=== PATIENT | male | born 1950 | race Caucasian/White ===

== ENCOUNTER 2017-12-15 14:27 | Inpatient (IN) ==
--- NOTE | 2017-12-15 14:55 | Emergency Department Note ---
Disposition Clinical Impression: Acute exacerbation of chronic obstructive airways disease Dyspnea Qualifiers: Dyspnea type: unspecified Qualified Code(s): R06.00 - Dyspnea, unspecified Congestive heart failure Qualifiers: Heart failure type: other Qualified Code(s): I50.9 - Heart failure, unspecified Disposition: Admitted As Inpatient Condition: Good Time of Disposition: 19:40 General Adult HPI - General Chief complaint: ED Shortness of Breath/Dyspnea Stated complaint: URIAH X 3weeks Time Seen by Provider: 12/15/17 14:43 Nursing Notes Reviewed: Yes Vital Signs Reviewed: Yes - History of Present Illness HPI Narrative: One-week history of increasing shortness of breath. Cough. Increased weight gain and swelling to lower extremity. Has increased his Lasix which helped with the swelling however is gotten worse again. Recent antibiotic use with no help of the shortness of breath. Pain Scale: 0 - Related Data Home Medications Medication Instructions Recorded Confirmed Albuterol Sulfate [Ventolin Hfa] 2 puff IH Q6H PRN 08/29/17 08/29/17 Atorvastatin Calcium [Lipitor] 20 mg PO HS 08/29/17 08/29/17 Buspirone HCl [Buspar] 15 mg PO DAILY 08/29/17 08/29/17 Diltiazem HCl [Diltiazem 24Hr Cd] 360 mg PO DAILY 08/29/17 08/29/17 Furosemide [Lasix] 80 mg PO DAILY 08/29/17 08/29/17 Glimepiride [Amaryl] 2 mg PO DAILY 08/29/17 08/29/17 Ipratropium Neb [Atrovent Neb] 0.5 mg IH Q6HR PRN 08/29/17 08/29/17 Levalbuterol HCl [Xopenex Neb] 1.25 mg IH Q8H PRN 08/29/17 08/29/17 Lisinopril [Lisinopril] 2.5 mg PO DAILY 08/29/17 08/29/17 Loperamide [Imodium] 2 mg PO BID PRN 08/29/17 08/29/17 Meloxicam [Meloxicam] 15 mg PO DAILY 08/29/17 08/29/17 Metformin HCl [Glucophage] 1,000 mg PO BID 08/29/17 08/29/17 Metoprolol Succinate 200 mg PO DAILY 08/29/17 08/29/17 Omeprazole [PriLOSEC] 40 mg PO DAILY 08/29/17 08/29/17 Rivaroxaban [Xarelto] 20 mg PO DAILY 08/29/17 08/29/17 Spironolactone [Aldactone] 25 mg PO DAILY 08/29/17 08/29/17 Temazepam [Restoril] 30 mg PO HS 08/29/17 08/29/17 Allergies Allergy/AdvReac Type Severity Reaction Status Date / Time cephalexin [From Keflex] Allergy Swelling Verified 08/29/17 09:59 of Lip/Tongue/Throat All systems ED: reviewed and negative except as stated. Constitutional: Denies: fever, chills ENT ED: Denies: congestion Cardiovascular: Denies: chest pain, palpitations, syncope Respiratory: Reports: cough, dyspnea, wheezes, sputum production. Denies: hemoptysis Gastrointestinal: Denies: abdominal pain, nausea, vomiting, diarrhea Genitourinary: Denies: urgency, dysuria Musculoskeletal: Denies: back pain, neck pain Integumentary: Denies: rash, abrasion Neurological: Denies: headache, weakness Past Medical History - Past Medical History Attestation: Yes The following information was validated with the patient. Source: patient Medical history: Reports: arthritis, atrial fibrillation, cardiomyopathy, COPD, coronary artery disease, CVA, diabetes, GERD, hyperlipidemia, hypertension, myocardial infarction Surgical history: Reports: angioplasty/stent, cancer surgery, cholecystectomy, orthopedic, other, prostatectomy, AICD, pacemaker Psychiatric history: Reports: anxiety, depression - Social History Smoking Status: Unknown if ever smoked Smokeless Tobacco Status: No Alcohol use: Reports: none Drug use: Reports: none Physical Exam - General Limitations: no limitations General appearance: alert, in no apparent distress - Head Head exam: atraumatic, normocephalic, normal inspection - Eye Eye exam: Present: normal appearance, PERRL, EOMI - ENT ENT exam: normal exam, normal oropharynx, mucous membranes moist - Neck Neck exam: Present: normal inspection, full ROM, trachea midline - Chest Chest inspection: Present: normal inspection, symmetric chest wall rise - Respiratory Respiratory exam: Present: wheezes. Absent: respiratory distress - Cardiovascular Cardiovascular exam: Present: regular rate, normal rhythm, normal heart sounds - Abdominal Exam Abdominal exam: Present: soft, Non-Tender. Absent: tenderness, distention, guarding, rebound, rigidity - Extremities Exam Extremities exam: Present: normal inspection, full ROM, pedal edema. Absent: tenderness - Back Exam Back exam: Present: normal inspection, full ROM. Absent: tenderness - Neurological Exam Neurological exam: Present: alert, oriented X3 - Psychiatric Psychiatric exam: Present: normal affect, normal mood - Skin Skin exam: Present: warm, dry, intact, normal color. Absent: rash, cyanosis Course Course Narrative: Male patient presenting to emergency complaining of a one-week history of increased weight gain shortness of breath and wheezing. Patient was being seen today at cardiology. He does have a productive cough with sputum. No fevers or chills. No chest pain. They were concerned due to patient's breathing status of a Kaveh. Patient was initially tachypneic. Lab work is normal. He does have pitting edema to his lower extremities. States that he has tried to increase his "fluid pill" and this did help with relieving some of the fluid however is increase again. Patient does have wheezing throughout. He is on oxygen at this time. He is chronically on oxygen at 2 L. We will provide patient with a DuoNeb. Her chest x-ray basic lab workup. We will provide him with steroids likely admitted to the hospital for COPD exacerbation. - Reevaluation(s) Reevaluation #1: Patient chest x-ray shows no focal consolidation however patient does have a productive sputum with a history of COPD. We will place patient on antibiotics and steroids. Patient's BNP is mildly elevated. We will admit patient to the hospital. - Consultations Consultation #1: Dr Bustos accepted patient stable condition. Vital Signs Temperature 97.9 F 12/15/17 14:30 Pulse Rate 107 12/15/17 14:30 Respiratory Rate 24 12/15/17 14:30 Blood Pressure 121/62 12/15/17 14:30 O2 Sat by Pulse Oximetry 97 12/15/17 14:30 Temperature 97.9 F 12/15/17 14:53 Pulse Rate 108 12/15/17 16:45 Respiratory Rate 16 12/15/17 16:45 Blood Pressure 124/83 12/15/17 16:45 O2 Sat by Pulse Oximetry 94 12/15/17 16:45 Oxygen Delivery Oxygen Delivery Nasal Cannula Medical Decision Making - Medical Records Medical records reviewed: Yes I reviewed the patient's medical records. - Lab Data Lab results reviewed: Yes I reviewed the patient's lab results. Result diagrams: 12/15/17 15:30 12/15/17 15:30 Lab Results 12/15/17 12/15/17 12/15/17 Range/Units 15:30 15:30 15:30 WBC 9.7 (4.3-11.1) K/mcL RBC 4.32 (4.19-5.50) M/mcL Hgb 10.7 L (12.9-16.9) g/dL Hct 35.3 L (37.5-50.1) % MCV 81.7 L (83.0-100.0) fL MCH 24.8 L (28.0-33.3) pg MCHC 30.3 L (31.6-35.5) g/dL RDW 17.2 H (11.5-14.5) % Plt Count 213 (140-400) K/mcL MPV 10.3 (9.4-12.4) fL Immature Gran % 0.4 (0-4) % Seg Neutrophils % 73.9 % Lymphocytes % 13.4 % Monocytes % 8.7 % Eosinophils % 3.2 % Basophils % 0.4 % Neutrophils # 7.2 (1.6-8.9) K/mcL Lymphocytes # 1.3 (0.6-4.6) K/mcL Monocytes # 0.8 (0.0-1.3) K/mcL Eosinophils # 0.3 (0.0-0.6) K/mcL Basophils # 0.0 (0.0-0.2) K/mcL Sodium 133 L (136-145) mEq/L Potassium 3.9 (3.5-5.1) mEq/L Chloride 100 (98-107) mEq/L Carbon Dioxide 25 (23-29) mEq/L BUN 17 (8-23) mg/dL Creatinine 1.32 H (0.70-1.30) mg/dL Est GFR ( Amer) > 60 (> 60) Est GFR (Non-Af Amer) 54 L (> 60) BUN/Creatinine Ratio 13 (6-26) Glucose 186 H (70-105) mg/dL Calculated Osmolality 282 (280-300) Lactic Acid 2.8 H (0.5-2.2) mmol/L Calcium 9.0 (8.6-10.3) mg/dL B-Natriuretic Peptide (Less than 100) pg/mL 12/15/17 12/15/17 Range/Units 15:30 17:35 WBC (4.3-11.1) K/mcL RBC (4.19-5.50) M/mcL Hgb (12.9-16.9) g/dL Hct (37.5-50.1) % MCV (83.0-100.0) fL MCH (28.0-33.3) pg MCHC (31.6-35.5) g/dL RDW (11.5-14.5) % Plt Count (140-400) K/mcL MPV (9.4-12.4) fL Immature Gran % (0-4) % Seg Neutrophils % % Lymphocytes % % Monocytes % % Eosinophils % % Basophils % % Neutrophils # (1.6-8.9) K/mcL Lymphocytes # (0.6-4.6) K/mcL Monocytes # (0.0-1.3) K/mcL Eosinophils # (0.0-0.6) K/mcL Basophils # (0.0-0.2) K/mcL Sodium (136-145) mEq/L Potassium (3.5-5.1) mEq/L Chloride (98-107) mEq/L Carbon Dioxide (23-29) mEq/L BUN (8-23) mg/dL Creatinine (0.70-1.30) mg/dL Est GFR ( Amer) (> 60) Est GFR (Non-Af Amer) (> 60) BUN/Creatinine Ratio (6-26) Glucose (70-105) mg/dL Calculated Osmolality (280-300) Lactic Acid 2.7 H (0.5-2.2) mmol/L Calcium (8.6-10.3) mg/dL B-Natriuretic Peptide 376 H (Less than 100) pg/mL - Radiology Data Radiology results reviewed: Yes I reviewed the patient's radiology results. Chest X-Ray 12/15/17 14:54 IMPRESSION: No evidence for acute cardiopulmonary process. D/ / Dewey Covarrubias MD / Dewey Covarrubias MD Interpreting Provider: Dewey Covarrubias MD - EKG Data EKG #1 EKG attestation: Yes I reviewed and interpreted this EKG. EKG results narrative: A. fib with RVR at 105. QRS duration is 110. QT is 383. QTC is 444. No signs of acute ischemia. No previous EKG to compare to.
[2017-12-15] MEDS ORDERED: Ipratropium/Albuterol Neb 3 ML IH ONE (15:15)
[2017-12-15 15:45] LABS: Basophils % 0.4 %; Eosinophils # 0.3 K/mcL (0.0-0.6); Eosinophils % 3.2 %; Hematocrit 35.3 % (37.5-50.1); Hemoglobin 10.7 g/dL (12.9-16.9); Immature Granulocytes % 0.4 % (0-4); Lymphocytes # 1.3 K/mcL (0.6-4.6); Lymphocytes % 13.4 %; Mean Corpuscular HGB Conc 30.3 g/dL (31.6-35.5); Mean Corpuscular Hemoglobin 24.8 pg (28.0-33.3); Mean Corpuscular Volume 81.7 fL (83.0-100.0); Mean Platelet Volume 10.3 fL (9.4-12.4); Monocytes # 0.8 K/mcL (0.0-1.3); Monocytes % 8.7 %; Neutrophils # 7.2 K/mcL (1.6-8.9); Platelet Count 213 K/mcL (140-400); Red Blood Count 4.32 M/mcL (4.19-5.50); Red Cell Distribution Width 17.2 % (11.5-14.5); Segmented Neutrophils % 73.9 %
[2017-12-15 16:03] LABS: BUN/Creatinine Ratio 13 (6-26); Blood Urea Nitrogen 17 mg/dL (8-23); Carbon Dioxide 25 mEq/L (23-29); Chloride 100 mEq/L (98-107); Glucose 186 mg/dL (70-105); Osmolality,Calculated 282 (280-300); Potassium 3.9 mEq/L (3.5-5.1); Sodium 133 mEq/L (136-145); eGFR For Non-African Americans 54 (> 60)
--- NOTE | 2017-12-15 16:27 | Emergency Department Note ---
Disposition Clinical Impression: Dyspnea Qualifiers: Dyspnea type: unspecified Qualified Code(s): R06.00 - Dyspnea, unspecified Disposition: Still a Patient Referrals: Jessica Rosen MANAGER MANUFACTURING [Primary Care Provider] - Forms: ED Satisfaction Letter General Adult HPI - General Chief complaint: ED Shortness of Breath/Dyspnea Stated complaint: URIAH X 3weeks Time Seen by Provider: 12/15/17 14:43 Source: patient, family Limitations: no limitations - History of Present Illness Pain Scale: 0 - Related Data Home Medications Medication Instructions Recorded Confirmed Acetylcysteine [Nac] 500 mg PO BID 08/29/17 08/29/17 Albuterol Sulfate [Ventolin Hfa] 2 puff IH Q6H PRN 08/29/17 08/29/17 Atorvastatin Calcium [Lipitor] 20 mg PO HS 08/29/17 08/29/17 Buspirone HCl [Buspar] 15 mg PO DAILY 08/29/17 08/29/17 Diltiazem HCl [Diltiazem 24Hr Cd] 360 mg PO DAILY 08/29/17 08/29/17 Furosemide [Lasix] 80 mg PO DAILY 08/29/17 08/29/17 Glimepiride [Amaryl] 2 mg PO DAILY 08/29/17 08/29/17 Ipratropium Neb [Atrovent Neb] 0.5 mg IH Q6HR PRN 08/29/17 08/29/17 Levalbuterol HCl [Xopenex Neb] 1.25 mg IH Q8H PRN 08/29/17 08/29/17 Lisinopril [Lisinopril] 2.5 mg PO DAILY 08/29/17 08/29/17 Loperamide [Imodium] 2 mg PO BID PRN 08/29/17 08/29/17 Meloxicam [Meloxicam] 15 mg PO DAILY 08/29/17 08/29/17 Metformin HCl [Glucophage] 1,000 mg PO BID 08/29/17 08/29/17 Metoprolol Succinate 200 mg PO DAILY 08/29/17 08/29/17 Omeprazole [PriLOSEC] 40 mg PO DAILY 08/29/17 08/29/17 Rivaroxaban [Xarelto] 20 mg PO DAILY 08/29/17 08/29/17 Spironolactone [Aldactone] 25 mg PO DAILY 08/29/17 08/29/17 Temazepam [Restoril] 30 mg PO HS 08/29/17 08/29/17 Allergies Allergy/AdvReac Type Severity Reaction Status Date / Time cephalexin [From Keflex] Allergy Swelling Verified 08/29/17 09:59 of Lip/Tongue/Throat Past Medical History - Past Medical History Medical history: Reports: arthritis, atrial fibrillation, cardiomyopathy, COPD, coronary artery disease, CVA, diabetes, GERD, hyperlipidemia, hypertension, myocardial infarction Surgical history: Reports: angioplasty/stent, cancer surgery, cholecystectomy, orthopedic, other, prostatectomy, AICD, pacemaker Psychiatric history: Reports: anxiety, depression - Social History Smoking Status: Unknown if ever smoked Smokeless Tobacco Status: No Alcohol use: Reports: none Drug use: Reports: none Physical Exam - General Limitations: no limitations General appearance: alert, in no apparent distress Course Vital Signs Temperature 97.9 F 12/15/17 14:30 Pulse Rate 107 12/15/17 14:30 Respiratory Rate 24 12/15/17 14:30 Blood Pressure 121/62 12/15/17 14:30 O2 Sat by Pulse Oximetry 97 12/15/17 14:30 Temperature 97.9 F 12/15/17 14:53 Pulse Rate 110 12/15/17 16:12 Respiratory Rate 14 12/15/17 16:12 Blood Pressure 111/89 12/15/17 16:12 O2 Sat by Pulse Oximetry 97 12/15/17 16:12 Oxygen Delivery Oxygen Delivery Nasal Cannula Medical Decision Making - Lab Data Result diagrams: 12/15/17 15:30 12/15/17 15:30 Lab Results 12/15/17 12/15/17 12/15/17 Range/Units 15:30 15:30 15:30 WBC 9.7 (4.3-11.1) K/mcL RBC 4.32 (4.19-5.50) M/mcL Hgb 10.7 L (12.9-16.9) g/dL Hct 35.3 L (37.5-50.1) % MCV 81.7 L (83.0-100.0) fL MCH 24.8 L (28.0-33.3) pg MCHC 30.3 L (31.6-35.5) g/dL RDW 17.2 H (11.5-14.5) % Plt Count 213 (140-400) K/mcL MPV 10.3 (9.4-12.4) fL Immature Gran % 0.4 (0-4) % Seg Neutrophils % 73.9 % Lymphocytes % 13.4 % Monocytes % 8.7 % Eosinophils % 3.2 % Basophils % 0.4 % Neutrophils # 7.2 (1.6-8.9) K/mcL Lymphocytes # 1.3 (0.6-4.6) K/mcL Monocytes # 0.8 (0.0-1.3) K/mcL Eosinophils # 0.3 (0.0-0.6) K/mcL Basophils # 0.0 (0.0-0.2) K/mcL Sodium 133 L (136-145) mEq/L Potassium 3.9 (3.5-5.1) mEq/L Chloride 100 (98-107) mEq/L Carbon Dioxide 25 (23-29) mEq/L BUN 17 (8-23) mg/dL Creatinine 1.32 H (0.70-1.30) mg/dL Est GFR ( Amer) > 60 (> 60) Est GFR (Non-Af Amer) 54 L (> 60) BUN/Creatinine Ratio 13 (6-26) Glucose 186 H (70-105) mg/dL Calculated Osmolality 282 (280-300) Lactic Acid 2.8 H (0.5-2.2) mmol/L Calcium 9.0 (8.6-10.3) mg/dL B-Natriuretic Peptide (Less than 100) pg/mL 12/15/17 Range/Units 15:30 WBC (4.3-11.1) K/mcL RBC (4.19-5.50) M/mcL Hgb (12.9-16.9) g/dL Hct (37.5-50.1) % MCV (83.0-100.0) fL MCH (28.0-33.3) pg MCHC (31.6-35.5) g/dL RDW (11.5-14.5) % Plt Count (140-400) K/mcL MPV (9.4-12.4) fL Immature Gran % (0-4) % Seg Neutrophils % % Lymphocytes % % Monocytes % % Eosinophils % % Basophils % % Neutrophils # (1.6-8.9) K/mcL Lymphocytes # (0.6-4.6) K/mcL Monocytes # (0.0-1.3) K/mcL Eosinophils # (0.0-0.6) K/mcL Basophils # (0.0-0.2) K/mcL Sodium (136-145) mEq/L Potassium (3.5-5.1) mEq/L Chloride (98-107) mEq/L Carbon Dioxide (23-29) mEq/L BUN (8-23) mg/dL Creatinine (0.70-1.30) mg/dL Est GFR ( Amer) (> 60) Est GFR (Non-Af Amer) (> 60) BUN/Creatinine Ratio (6-26) Glucose (70-105) mg/dL Calculated Osmolality (280-300) Lactic Acid (0.5-2.2) mmol/L Calcium (8.6-10.3) mg/dL B-Natriuretic Peptide 376 H (Less than 100) pg/mL Attestation Statement - Attestation Attestation: I examined this patient and my medical decision-making was reviewed with the Resident Physician. I agree with the documented findings, disposition and treatment plan as described except to the extent set forth below. 67 year old male presents to the ED with complaitns of cough and productive whitish cough but no fevers, green/yellow discharge. He wears 4LNC at home and has not been on anitbitoics recently. PAtinet states that he is becoming more dyspneic. WE will do breathing tratments and re-eval and rule out pneumonia
[2017-12-15] MEDS ORDERED: Levofloxacin 750 MG/150 ML 750 MG/150 ML BAG IVPB ONE (16:49)
[2017-12-15] MEDS ORDERED: methylPREDNISolone 125 MG/2 ML VIAL IVP ONE (16:50)
--- NOTE | 2017-12-15 18:50 | Internal Med History&Physical ---
Date of Encounter: 12/15/17 Time of Encounter: 15:00 Internal Medicine - H&P: HPI Chief complaint: Shortness of breath Admitted From: Home Plans for Post Hospital Care: Home History of present illness: Patient is a 67-year-old male with past medical history significant for cardiomyopathy, atrial fibrillation with AICD/pacemaker, hypertension, hyperlipidemia, diabetes, CVA and COPD who presents to the ER on 12/15/17 after being sent from the cardiologists office due to volume overload. Patient reports a three-week history of increased shortness of breath in addition to lower extremity edema. Patient also reports of decreased urinary output. Patient had apparently scheduled appointment at cardiologists office today who recommended patient come in for further treatment of exacerbation of heart failure. In the ER, patient was found to have an elevated BNP of 376 and elevated creatinine of 1.32. Chest x-ray showed no evidence of acute cardiopulmonary process. Patient will be admitted to medical surgical floor for CHF exacerbation, COPD exacerbation and acute renal failure. Past Med Surg Social Fam HX - Past Medical History Medical history: arthritis, atrial fibrillation, cardiomyopathy, COPD, coronary artery disease, CVA, diabetes, GERD, hyperlipidemia, hypertension, myocardial infarction Additional medical history: "chronic bronchitis" Psychiatric history: anxiety, depression - Past Surgical History Surgical History: angioplasty/stent, cancer surgery, cholecystectomy, orthopedic , other, prostatectomy, AICD, pacemaker Additional surgical history: prostectomy. rt knee. gall bladder. shoulders. medtronic pacemaker - Social History Smoking Status: Unknown if ever smoked Smokeless Tobacco Status: No Alcohol use: none Drug use: none - Family History Sister Hx Family Cardiac Disorders: Yes (Coronary arterial disease) Internal Medicine - H&P: Meds Albuterol Sulfate [Ventolin Hfa] 2 puff IH Q6H PRN 08/29/17 [History] Atorvastatin Calcium [Lipitor] 20 mg PO HS 08/29/17 [History] Buspirone HCl [Buspar] 15 mg PO DAILY 08/29/17 [History] Diltiazem HCl [Diltiazem 24Hr Cd] 360 mg PO DAILY 08/29/17 [History] Furosemide [Lasix] 80 mg PO DAILY 08/29/17 [History] Glimepiride [Amaryl] 2 mg PO DAILY 08/29/17 [History] Ipratropium Neb [Atrovent Neb] 0.5 mg IH Q6HR PRN 08/29/17 [History] Levalbuterol HCl [Xopenex Neb] 1.25 mg IH Q8H PRN 08/29/17 [History] Lisinopril [Lisinopril] 2.5 mg PO DAILY 08/29/17 [History] Loperamide [Imodium] 2 mg PO BID PRN 08/29/17 [History] Meloxicam [Meloxicam] 15 mg PO DAILY 08/29/17 [History] Metformin HCl [Glucophage] 1,000 mg PO BID 08/29/17 [History] Metoprolol Succinate 200 mg PO DAILY 08/29/17 [History] Omeprazole [PriLOSEC] 40 mg PO DAILY 08/29/17 [History] Rivaroxaban [Xarelto] 20 mg PO DAILY 08/29/17 [History] Spironolactone [Aldactone] 25 mg PO DAILY 08/29/17 [History] Temazepam [Restoril] 30 mg PO HS 08/29/17 [History] 3 Allergy/AdvReac Type Severity Reaction Status Date / Time cephalexin [From Keflex] Allergy Swelling Verified 08/29/17 09:59 of Lip/Tongue/Throat All Systems PM: A 10-system review of systems was performed and is negative for pertinent findings except as documented above in the HPI. - Constitutional Vitals: Temp Pulse Resp BP Pulse Ox 97.9 F 108 16 124/83 94 12/15/17 14:53 12/15/17 16:45 12/15/17 16:45 12/15/17 16:45 12/15/17 16:45 General appearance: Present: A&O X 3, no acute distress - Eye Eye exam: Present: normal appearance, PERRL, conjuntiva pink, sclera anicteric Pupils: Present: PERRL - ENT ENT exam: Present: mucous membranes moist - Respiratory Respiratory exam: Present: CTAB. Absent: accessory muscle use, rales, rhonchi, wheezes - Cardiovascular Cardiovascular exam: Present: RRR, +S1, +S2. Absent: diastolic murmur, gallop, rubs, systolic murmur - GI/Abdominal GI/Abdominal exam: Present: normal bowel sounds, soft, no peritoneal signs. Absent: distended, tenderness - Expanded Lower Extremities Exam Lower Leg exam: Present: swelling (Bilateral 1+ pitting lower extremity edema up to mid tibia) - Neurological Exam Neurological exam: Present: oriented X3 - Psychiatric Psychiatric exam: Present: normal mood Internal Med - H&P Results - Labs CBC & Chem 7: 12/15/17 15:30 12/15/17 15:30 - Assessment and plan (1) Dyspnea Current Visit: Yes Status: Acute Assessment and plan: Patient with a three-week history of shortness of breath in addition to increased lower extremity edema with an elevated BNP Continue IV diuresis for heart failure exacerbation; echocardiogram pending We will also treat suspected COPD exacerbation with oral prednisone and DuoNeb's Qualifiers: Dyspnea type: unspecified Qualified Code(s): R06.00 - Dyspnea, unspecified (2) COPD exacerbation Current Visit: Yes Status: Acute Assessment and plan: Management as above (3) Acute renal failure (ARF) Current Visit: Yes Status: Acute Assessment and plan: Patient with a creatinine of 1.3 to a GFR 54 Will continue to monitor; levels might increase due to IV diuresis above Qualifiers: Acute renal failure type: unspecified Qualified Code(s): N17.9 - Acute kidney failure, unspecified (4) DVT prophylaxis Current Visit: Yes Status: Acute Assessment and plan: Patient's home dose of Xarelto - Time Spent With Patient Total time spent is greater than 50% in coordination of care (as documented) at patient's floor/unit and/or counseling patient:
[2017-12-15] MEDS ORDERED: Naloxone 0.4 MG/ML INJ IVP PRN (18:58)
[2017-12-15] MEDS ORDERED: Ipratropium Neb 0.5 MG NEBULIZER IH PRN (19:06)
[2017-12-15] MEDS ORDERED: Albuterol 2.5 MG/3 ML NEBULIZER AER PRN (19:06)
[2017-12-15] MEDS: Ipratropium/Albuterol Neb 3 ML IH SCH ×2 (20:19→22:24)
[2017-12-15] MEDS ORDERED: Furosemide 80 MG in 0.9 % Sodium Chloride 50 ML IVPB SCH (21:00)
[2017-12-15] MEDS: Levalbuterol Neb 1.25 MG/3 ML IH SCH (22:19)
[2017-12-15] MEDS: Temazepam 15 MG CAPSULE PO SCH (22:20)
--- NOTE | 2017-12-15 23:59 | Event Note ---
Date of Encounter: 12/15/17 Time of Encounter: 21:00 Alerted by patient's nurse SUSU Grimm that patient has history of A. fib and is now showing A. fib with RVR with heart rate spiking into the 140s to 150s. Patient had not had home dose of metoprolol yet is ordered for 09:00 tomorrow. Patient also takes 360 mg Cardizem in a.m. which is also ordered for 09:00 tomorrow. Pts. BP 117/71. One-time dose of 10 mg IVP cardizem ordered. D/t pts. Afib, ordered DuoNeb's discontinued and replaced with Xopenex IH. Notified by patient's nurse at 23:47 the patient's heart rate was currently still on 150s with blood pressure 115/79. Nurse reported patient received Cardizem at 22:14. Discussed patient with Dr. Gallardo w/recommendation to begin Cardizem drip beginning at 5 mg. w/o bolus. Notified pts. nurse of order w/communication to monitor pts. BP closely. Nurse to notify Dr. Gallardo of any adverse changes or problems overnight.
[2017-12-16] MEDS: Levalbuterol Neb 1.25 MG/3 ML IH SCH ×4 (04:55→21:03)
[2017-12-16] MEDS ORDERED: Metoprolol 100 MG TABLET PO ONE (05:19)
[2017-12-16] MEDS: Metoprolol XL (24 HR) Succ 50 MG TAB.ER.24H PO SCH (05:20)
[2017-12-16] MEDS ORDERED: D5% in Water 1,000 ML IVC PRN (05:23)
[2017-12-16] MEDS ORDERED: *HR* Dextrose 50 % in Water (Syg) 50 ML SYRINGE IVP PRN (05:24)
[2017-12-16] MEDS ORDERED: Dextrose Gel 15 GM/37.5 ML TUBE PO PRN ×2 (05:25→05:26)
[2017-12-16 06:40] LABS: Hematocrit 34.6 % (37.5-50.1); Hemoglobin 10.5 g/dL (12.9-16.9); Immature Granulocytes % 0.8 % (0-4); Lymphocytes # 0.4 K/mcL (0.6-4.6); Lymphocytes % 5.2 %; Mean Corpuscular HGB Conc 30.3 g/dL (31.6-35.5); Mean Corpuscular Hemoglobin 24.7 pg (28.0-33.3); Mean Corpuscular Volume 81.4 fL (83.0-100.0); Mean Platelet Volume 10.4 fL (9.4-12.4); Monocytes # 0.1 K/mcL (0.0-1.3); Monocytes % 1.6 %; Neutrophils # 7.6 K/mcL (1.6-8.9); Platelet Count 195 K/mcL (140-400); Red Blood Count 4.25 M/mcL (4.19-5.50); Red Cell Distribution Width 17.1 % (11.5-14.5); Segmented Neutrophils % 92.4 %
[2017-12-16 07:05] LABS: BUN/Creatinine Ratio 15 (6-26); Blood Urea Nitrogen 20 mg/dL (8-23); Calcium 9.2 mg/dL (8.6-10.3); Carbon Dioxide 22 mEq/L (23-29); Chloride 97 mEq/L (98-107); Glucose 384 mg/dL (70-105); Osmolality,Calculated 290 (280-300); Potassium 4.2 mEq/L (3.5-5.1); Sodium 131 mEq/L (136-145); eGFR For Non-African Americans 53 (> 60)
[2017-12-16] MEDS ORDERED: Insulin LISPRO 300 UNITS/3 ML VIAL SQ SCH ×3 (07:30→21:00)
[2017-12-16] MEDS: Spironolactone 25 MG TABLET PO SCH (07:41)
[2017-12-16] MEDS: *HR* Rivaroxaban 10 MG TABLET PO SCH (07:41)
[2017-12-16] MEDS: Diltiazem CD (24hr) 180 MG CAPSULE PO SCH (07:41)
[2017-12-16] MEDS ORDERED: predniSONE 20 MG TABLET PO SCH (09:00)
[2017-12-16] MEDS: Insulin LISPRO 300 UNITS/3 ML VIAL SQ SCH ×3 (09:21→16:58)
[2017-12-16] MEDS: Furosemide 40 MG/4 ML VIAL IVP SCH ×2 (09:21→16:57)
[2017-12-16] MEDS: Azithromycin 500 MG in D5% in Water 250 ML IVPB SCH (11:16)
--- NOTE | 2017-12-16 12:08 | Internal Med Progress Note ---
Hospitalist Progress Note - Encounter Date of Encounter: 12/16/17 Time of Encounter: 09:00 - Subjective Interval History: Patient said shortness of breath has improved after treatment. Has mild nonproductive cough. - Exam Vitals: Temp Pulse Resp BP Pulse Ox 97.5 F L 102 20 117/66 97 12/16/17 11:01 12/16/17 11:01 12/16/17 11:01 12/16/17 11:01 12/16/17 11:01 Exam: Patient is awake alert, oriented 3, in no acute distress. HEENT: NC/AT, PERRL Neck: Supple, no LAD Lungs: Diffused wheezing bilaterally Heart: S1S2, irregular Abd: Soft, NT, BS normal. Ext: ROM wnl, mild b/l pedal edema Neuro: AAO x 3, no focal neuro deficit - Assessment and Plan (1) Dyspnea Current Visit: Yes Status: Acute Assessment and Plan: Patient with a three-week history of shortness of breath in addition to increased lower extremity edema with an elevated BNP - Continue IV diuresis for heart failure exacerbation; echocardiogram pending - Patient has bilateral wheezing, treated as COPD exacerbation with oral prednisone and DuoNeb, add azithromycin IV (2) COPD exacerbation Current Visit: Yes Status: Acute Assessment and Plan: Management as above (3) Acute renal failure (ARF) Current Visit: Yes Status: Acute Assessment and Plan: Patient with a creatinine of 1.3 to a GFR 54 Will continue to monitor; continue IV Lasix, strict I and O, and fluid restriction (4) DVT prophylaxis Current Visit: Yes Status: Acute Assessment and Plan: Patient's home dose of Xarelto (5) Atrial fibrillation with RVR Current Visit: Yes Status: Acute Assessment and Plan: Patient has A. fib on xarelto at home. Cardizem drip was started last night, heart rate get down now, Cardizem drip was stopped and patient will continue with his by mouth Cardizem - Time Spent with Patient Total time spent is greater than 50% in coordination of care (as documented) at patient's floor/unit and/or counseling patient: 40 minutes Greater than 35 minutes Plan of Care Discussed with: patient Internal Medicine: Result - Labs CBC & Chem 7: 12/16/17 06:17 12/16/17 06:17 Labs: Short CBC 12/16/17 Range/Units 06:17 WBC 8.2 (4.3-11.1) K/mcL Hgb 10.5 L (12.9-16.9) g/dL Hct 34.6 L (37.5-50.1) % Plt Count 195 (140-400) K/mcL Neutrophils # 7.6 (1.6-8.9) K/mcL BMP 12/16/17 06:17 Sodium 131 L Potassium 4.2 Chloride 97 L Carbon Dioxide 22 L BUN 20 Creatinine 1.34 H Glucose 384 H Calcium 9.2 Consult Discharge Plan - Plan Referrals: Jessica Rosen, DIGITAL [employer] PRESS OPERATOR [Primary Care Provider] - (1) Dyspnea Qualifiers: Dyspnea type: unspecified Qualified Code(s): R06.00 - Dyspnea, unspecified (3) Acute renal failure (ARF) Qualifiers: Acute renal failure type: unspecified Qualified Code(s): N17.9 - Acute kidney failure, unspecified
[2017-12-16] MEDS ORDERED: Acetaminophen 325 MG TABLET PO PRN (13:38)
[2017-12-16] MEDS ORDERED: Albuterol 2.5 MG/3 ML NEBULIZER IH PRN (13:46)
[2017-12-16] MEDS: methylPREDNISolone 125 MG/2 ML VIAL IVP SCH ×2 (18:05→23:38)
[2017-12-16] MEDS: Temazepam 15 MG CAPSULE PO SCH (21:48)
[2017-12-16] MEDS: *HR* Acetylcysteine 20% 600 MG/3 ML ORAL SYRINGE PO SCH (21:49)
[2017-12-17] MEDS: Levalbuterol Neb 1.25 MG/3 ML IH SCH ×4 (04:32→22:10)
[2017-12-17 04:41] LABS: Hematocrit 31.7 % (37.5-50.1); Hemoglobin 9.6 g/dL (12.9-16.9); Immature Granulocytes % 0.8 % (0-4); Lymphocytes # 0.5 K/mcL (0.6-4.6); Lymphocytes % 3.9 %; Mean Corpuscular HGB Conc 30.3 g/dL (31.6-35.5); Mean Corpuscular Hemoglobin 24.7 pg (28.0-33.3); Mean Corpuscular Volume 81.5 fL (83.0-100.0); Monocytes # 0.4 K/mcL (0.0-1.3); Monocytes % 3.2 %; Neutrophils # 11.8 K/mcL (1.6-8.9); Platelet Count 188 K/mcL (140-400); Red Blood Count 3.89 M/mcL (4.19-5.50); Red Cell Distribution Width 17.2 % (11.5-14.5); Segmented Neutrophils % 92.1 %
[2017-12-17 05:00] LABS: Calcium 9.1 mg/dL (8.6-10.3); Potassium 4.4 mEq/L (3.5-5.1)
[2017-12-17] MEDS: methylPREDNISolone 125 MG/2 ML VIAL IVP SCH ×3 (05:42→16:32)
[2017-12-17] MEDS ORDERED: Perflutren Lipid Microsphere 1.3 ML in 0.9 % Sodium Chloride 8.7 ML IVP ONE (06:56)
[2017-12-17] MEDS: Insulin LISPRO 300 UNITS/3 ML VIAL SQ SCH ×5 (07:50→22:38)
[2017-12-17] MEDS: Furosemide 40 MG/4 ML VIAL IVP SCH (07:51)
[2017-12-17] MEDS: *HR* Acetylcysteine 20% 600 MG/3 ML ORAL SYRINGE PO SCH ×2 (07:52→22:38)
[2017-12-17] MEDS: Diltiazem CD (24hr) 180 MG CAPSULE PO SCH (07:52)
[2017-12-17] MEDS: *HR* Rivaroxaban 10 MG TABLET PO SCH (07:52)
[2017-12-17] MEDS: Metoprolol XL (24 HR) Succ 50 MG TAB.ER.24H PO SCH (07:52)
[2017-12-17] MEDS: Spironolactone 25 MG TABLET PO SCH (07:52)
[2017-12-17] MEDS: Budesonide/Formoterol 160/4.5 MDI IH SCH ×2 (09:25→22:10)
[2017-12-17] MEDS: Levalbuterol Neb 1.25 MG/3 ML IH PRN ×2 (11:18→18:27)
--- NOTE | 2017-12-17 11:36 | Internal Med Progress Note ---
Hospitalist Progress Note - Encounter Date of Encounter: 12/17/17 Time of Encounter: 09:00 - Subjective Interval History: Patient said shortness of breath has improved after treatment. Has mild nonproductive cough. Still in mild respiratory distress. Pt said he urinate a lot with current diuretics treatment. - Exam Vitals: Temp Pulse Resp BP Pulse Ox 97.6 F 110 22 111/79 98 12/17/17 07:34 12/17/17 07:34 12/17/17 11:20 12/17/17 07:34 12/17/17 11:20 Exam: Pt is AAO x 3, in NAD HEENT: AC/NT, PERRL Neck: Supple, no LAD Lungs: Expiratory wheezing b/l Heart: S1S2, RRR Abd: Soft, NT, normal BS Ext: ROM wnl, mild b/l pedal edema improved Neuro: AAO x 3, no focal deficit. - Assessment and Plan (1) Dyspnea Current Visit: Yes Status: Acute Assessment and Plan: Patient with a three-week history of shortness of breath in addition to increased lower extremity edema with an elevated BNP - Continue IV diuresis for heart failure exacerbation; echocardiogram pending - Patient has bilateral wheezing, treated as COPD exacerbation with iv solumendral and DuoNeb, plus azithromycin IV. Add symbicort. (2) COPD exacerbation Current Visit: Yes Status: Acute Assessment and Plan: Management as above (3) Acute renal failure (ARF) Current Visit: Yes Status: Acute Assessment and Plan: Patient with a creatinine of 1.3 to a GFR 54 Will continue to monitor; continue IV Lasix, strict I and O, and fluid restriction Consider decrease dose of lasix as Cr is slightly increased and pt has good urine output and decreased leg swelling. (4) DVT prophylaxis Current Visit: Yes Status: Acute Assessment and Plan: Patient's home dose of Xarelto (5) Atrial fibrillation with RVR Current Visit: Yes Status: Acute Assessment and Plan: Patient has A. fib on xarelto at home. Cont home dose of metoprolol and cardizem for HR controll. Cont tele monitoring. (6) Diabetes mellitus Current Visit: Yes Status: Acute Assessment and Plan: Patient takes metformin and glimipiride at home. High Glu level probably due to steroid use. Place him on high dose SSI plus basal insulin. - Summary of Assessment and Plan Summary of Assessment and Plan: Generally improving clinically. Still wheezing on exam. Cont current management. - Time Spent with Patient Total time spent is greater than 50% in coordination of care (as documented) at patient's floor/unit and/or counseling patient: 40 min Greater than 35 minutes Plan of Care Discussed with: patient Internal Medicine: Result - Labs CBC & Chem 7: 12/17/17 04:18 12/17/17 04:18 Labs: Short CBC 12/17/17 Range/Units 04:18 WBC 12.8 H D (4.3-11.1) K/mcL Hgb 9.6 L (12.9-16.9) g/dL Hct 31.7 L (37.5-50.1) % Plt Count 188 (140-400) K/mcL Neutrophils # 11.8 H (1.6-8.9) K/mcL BMP 12/17/17 04:18 Sodium 129 L Potassium 4.4 Chloride 96 L Carbon Dioxide 25 BUN 30 H Creatinine 1.50 H Glucose 374 H Calcium 9.1 Consult Discharge Plan - Plan Referrals: Jessica Rosen, RENTAL AGENT [Primary Care Provider] - (1) Dyspnea Qualifiers: Dyspnea type: unspecified Qualified Code(s): R06.00 - Dyspnea, unspecified (3) Acute renal failure (ARF) Qualifiers: Acute renal failure type: unspecified Qualified Code(s): N17.9 - Acute kidney failure, unspecified (6) Diabetes mellitus Qualifiers: Diabetes mellitus type: type 2 Diabetes mellitus shelter insulin use: without termite control service representative use Diabetes mellitus complication status: with kidney complications Diabetes mellitus complication detail: with chronic kidney disease Chronic kidney disease stage: stage 3 (moderate) Qualified Code(s): E11.22 - Type 2 diabetes mellitus with diabetic chronic kidney disease; N18.3 - Chronic kidney disease, stage 3 (moderate)
[2017-12-17] MEDS: Azithromycin 500 MG in D5% in Water 250 ML IVPB SCH (12:08)
[2017-12-17] MEDS ORDERED: Insulin LISPRO 300 UNITS/3 ML VIAL SQ ONE (15:26)
[2017-12-17] MEDS ORDERED: Insulin DETEMIR 100 UNIT/ML X5UNITS SQ SCH ×2 (21:00)
[2017-12-17] MEDS: Temazepam 15 MG CAPSULE PO SCH (22:37)
[2017-12-18] MEDS: MethylPREDNISolone 40 MG/ML VIAL IVP SCH ×3 (00:13→16:53)
[2017-12-18] MEDS: Levalbuterol Neb 1.25 MG/3 ML IH SCH ×4 (04:05→22:11)
[2017-12-18 05:24] LABS: Basophils % 0.1 %; Hematocrit 32.5 % (37.5-50.1); Immature Granulocytes % 1.1 % (0-4); Lymphocytes # 0.5 K/mcL (0.6-4.6); Lymphocytes % 4.4 %; Mean Corpuscular HGB Conc 30.8 g/dL (31.6-35.5); Mean Corpuscular Hemoglobin 25.1 pg (28.0-33.3); Mean Corpuscular Volume 81.5 fL (83.0-100.0); Mean Platelet Volume 10.6 fL (9.4-12.4); Monocytes # 0.4 K/mcL (0.0-1.3); Monocytes % 3.6 %; Neutrophils # 10.4 K/mcL (1.6-8.9); Platelet Count 190 K/mcL (140-400); Red Blood Count 3.99 M/mcL (4.19-5.50); Red Cell Distribution Width 17.2 % (11.5-14.5); Segmented Neutrophils % 90.8 %
[2017-12-18 05:54] LABS: BUN/Creatinine Ratio 26 (6-26); Blood Urea Nitrogen 37 mg/dL (8-23); Calcium 9.1 mg/dL (8.6-10.3); Carbon Dioxide 23 mEq/L (23-29); Chloride 94 mEq/L (98-107); Glucose 421 mg/dL (70-105); Magnesium 2.6 mg/dL (1.6-2.6); Osmolality,Calculated 293 (280-300); Potassium 4.7 mEq/L (3.5-5.1); Sodium 128 mEq/L (136-145); eGFR For Non-African Americans 50 (> 60)
[2017-12-18 05:59] LABS: Thyroid Stimulating Hormone 0.328 mcIU/mL (0.340-5.600)
[2017-12-18] MEDS: Spironolactone 25 MG TABLET PO SCH (08:02)
[2017-12-18] MEDS: Metoprolol XL (24 HR) Succ 50 MG TAB.ER.24H PO SCH (08:02)
[2017-12-18] MEDS: Diltiazem CD (24hr) 180 MG CAPSULE PO SCH (08:03)
[2017-12-18] MEDS: *HR* Acetylcysteine 20% 600 MG/3 ML ORAL SYRINGE PO SCH ×2 (08:03→21:24)
[2017-12-18] MEDS: Furosemide 40 MG/4 ML VIAL IVP SCH (08:03)
[2017-12-18] MEDS: Insulin LISPRO 300 UNITS/3 ML VIAL SQ SCH ×7 (08:05→21:34)
[2017-12-18] MEDS: Levalbuterol Neb 1.25 MG/3 ML IH PRN (08:16)
--- NOTE | 2017-12-18 08:52 | Electrocardiograph Report ---
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
[2017-12-18] MEDS: Budesonide/Formoterol 160/4.5 MDI IH SCH ×2 (10:27→22:11)
--- NOTE | 2017-12-18 10:40 | Internal Med Progress Note ---
Hospitalist Progress Note - Encounter Date of Encounter: 12/18/17 Time of Encounter: 10:38 - Exam Vitals: Temp Pulse Resp BP Pulse Ox 97.7 F 111 18 140/88 99 12/18/17 07:10 12/18/17 07:10 12/18/17 07:10 12/18/17 07:10 12/18/17 07:10 - Assessment and Plan (1) Dyspnea Current Visit: Yes Status: Acute (2) COPD exacerbation Current Visit: Yes Status: Acute (3) Acute renal failure (ARF) Current Visit: Yes Status: Acute (4) DVT prophylaxis Current Visit: Yes Status: Acute (5) Congestive heart failure Current Visit: Yes Status: Acute (6) Atrial fibrillation with RVR Current Visit: Yes Status: Acute (7) Diabetes mellitus Current Visit: Yes Status: Acute - Time Spent with Patient Total time spent is greater than 50% in coordination of care (as documented) at patient's floor/unit and/or counseling patient: Internal Medicine: Result - Labs CBC & Chem 7: 12/18/17 05:09 12/18/17 05:09 Labs: Short CBC 12/18/17 Range/Units 05:09 WBC 11.4 H (4.3-11.1) K/mcL Hgb 10.0 L (12.9-16.9) g/dL Hct 32.5 L (37.5-50.1) % Plt Count 190 (140-400) K/mcL Neutrophils # 10.4 H (1.6-8.9) K/mcL BMP 12/18/17 05:09 Sodium 128 L Potassium 4.7 Chloride 94 L Carbon Dioxide 23 BUN 37 H Creatinine 1.42 H Glucose 421 H Calcium 9.1 - Impressions Impressions Echocardiogram 12/17/17 09:00 Impressions: Technically limited study due to poor sound wave transmission. Limited suboptimal views. No subcostal views adequate for interpretation able to be obtained. Pt in atrial fibrillation with RVR throughout study with HR 110-120s. Overall LV function appears grossly normal. Cannot exclude wall motion abnormalities due to technical limitations of study. Valves not well visualized. No significant valvular heart disease by Doppler criteria. Findings: Study Quality * Technically sub-optimal due to poor echocardiographic windows. ECG Findings * Atrial fibrillation. Left Ventricle * Overall LV function appears grossly normal. Cannot exclude wall motion abnormalities due to technical limitiations of study. * Unable to evaluate segmental wall motion due to technical quality. * Definity echo contrast was used. * Indeterminate diastolic function. Right Ventricle * Not well visualized Left Atrium * Left atrium is not well visualized. Right Atrium * Right atrium is not well visualized. Interatrial Septum * Interatrial septum not well evaluated. Aortic Valve * Aortic valve not well visualized. * No aortic regurgitation. * No aortic stenosis. Mitral Valve * Mitral valve not well visualized. * Trace mitral regurgitation. Tricuspid Valve * Tricuspid valve not well visualized. * Mild tricuspid regurgitation. * No pulmonary hypertension. Pulmonic Valve * Pulmonic valve not well visualized. Aorta * Not well visualized Pericardium * There is no pericardial effusion present. IVC * The IVC is not well evaluated. Consult Discharge Plan - Plan Referrals: Jessica Rosen, IVON [Primary Care Provider] - (1) Dyspnea Qualifiers: Dyspnea type: unspecified Qualified Code(s): R06.00 - Dyspnea, unspecified (3) Acute renal failure (ARF) Qualifiers: Acute renal failure type: unspecified Qualified Code(s): N17.9 - Acute kidney failure, unspecified (5) Congestive heart failure Qualifiers: Heart failure type: other Qualified Code(s): I50.9 - Heart failure, unspecified (7) Diabetes mellitus Qualifiers: Diabetes mellitus type: type 2 Diabetes mellitus siding mechanic insulin use: without residential use Diabetes mellitus complication status: with kidney complications Diabetes mellitus complication detail: with chronic kidney disease Chronic kidney disease stage: stage 3 (moderate) Qualified Code(s): E11.22 - Type 2 diabetes mellitus with diabetic chronic kidney disease; N18.3 - Chronic kidney disease, stage 3 (moderate)
--- NOTE | 2017-12-18 10:56 | Internal Med Progress Note ---
<Natalie Lane - Last Filed: 12/18/17 15:17> Hospitalist Progress Note - Encounter Date of Encounter: 12/18/17 Time of Encounter: 10:56 - Subjective Interval History: Patient is a 67 yo M with history of COPD, Atrial Fribrillation with AICD, HLD, DM, and CVA who presented to the ED on 12/15/17 after referral from the cardiologists office due to fluid overload and SOB. Today the patient states he is much improved in terms of his breathing. He feels his fluid levels have returned to his baseline and he states if he is not discharged tomorrow he will leave. - Exam Vitals: Temp Pulse Resp BP Pulse Ox 97.7 F 111 18 140/88 99 12/18/17 07:10 12/18/17 07:10 12/18/17 07:10 12/18/17 07:10 12/18/17 07:10 Exam: General: white male sitting upright in bed. Conversant, No Apparent Distress, able to speak in full sentences and follow commands Neck: No JVD, trachea midline HEENT: PERRL, normocephalic, atraumatic Cardiac: Reg Rate and Rhythm, Normal S1 and S2, No murmurs appreciated Pulmonary: Inspiratory and expiratory wheezing throughout, worse on right, No Rales or Rhonchi, Not in respiratory distress on 4L nasal cannula Abdomen: soft, tontender, no bruits, no guarding Neuro: Alert and responsive, No focal deficits noted Vascular: Normal capillary refill Skin: No rashes noted on visualized skin. Musculoskeletal: No Chest Wall Tenderness Extremities: No Clubbing, No Cyanosis, Trace peripheral edema, Normal Pulses Psych: Normal mood, pleasant, conversant - Assessment and Plan (1) COPD exacerbation Current Visit: Yes Status: Acute Assessment and Plan: - Patient continues on duonebs, zithromax 500mg IV, symbicort 2 puffs BID, buspar 15mg, levalbuterol 1.25 q 6, and solumedrol 40mg q 8 hours, changed today to BID - Notes significant improvement since admission and requesting to be discharged home - Patient continues to wheeze which he states is his baseline - Will decrease solumedrol from 40mg q 8 to 40mg q 12 hours - Recheck tomorrow and he can likely be discharged home (2) Lactic acidosis Current Visit: Yes Status: Acute Assessment and Plan: - On admission patient had elevated lactate to 2.8, down to 1.9 yesterday - Today this is elevated to 5.1, unsure as to cause - Patient is on metformin at home but this was discontinued on admission. Patient does not appear toxic, has no evidence of fever, systemic illness. He denies any abdominal pain or chest pain. He is tachycardic but this is a result of his AFib. At this point, unsure as to significance of this elevation but will redraw 6 hours after initial (3) Dyspnea Current Visit: Yes Status: Acute Assessment and Plan: - Patient notes significant improvement since admission - Now back to 4L which is his home oxygen requirement (4) Acute renal failure (ARF) Current Visit: Yes Status: Acute Assessment and Plan: - creatinine elevated to 1.42, improved from 1.50 yesterday - Continue with oral rehydration and possibly decrease lasix dosage to avoid further renal injury (5) Atrial fibrillation with RVR Current Visit: Yes Status: Acute Assessment and Plan: - Patient with AFib on Xarelto 15mg (6) Congestive heart failure Current Visit: Yes Status: Acute Assessment and Plan: - Patient has clinical symptoms consistent with CHF including peripheral edema and orthopnea - Echo from 2017 was inconclusive and repeat yesterday was also unable to be read - Patient continues on lasix 40mg IV, he takes 80mg at home - Continues on cardizem 360mg and spironolactone 25mg (7) Diabetes mellitus Current Visit: Yes Status: Acute Assessment and Plan: - Continues on inslulin sliding scale, blood sugars have been notably elevated due to steroid use, today solumedrol decreased from 40 q 8 to q 12 (8) Hyperlipidemia Current Visit: Yes Status: Acute Assessment and Plan: - Continues on lipitor 20mg (9) Hypertension Current Visit: Yes Status: Acute Assessment and Plan: - Continues on lisinopril 2.5 mg and metoprolol succinate 200mg daily - Will continue to monitor vitals (10) DVT prophylaxis Current Visit: Yes Status: Acute Assessment and Plan: - Patient continues on home dose of xarelto 15mg - Time Spent with Patient Total time spent is greater than 50% in coordination of care (as documented) at patient's floor/unit and/or counseling patient: 25 - 35 minutes Plan of Care Discussed with: patient Internal Medicine: Result - Labs CBC & Chem 7: 12/18/17 05:09 12/18/17 05:09 Labs: Short CBC 12/18/17 Range/Units 05:09 WBC 11.4 H (4.3-11.1) K/mcL Hgb 10.0 L (12.9-16.9) g/dL Hct 32.5 L (37.5-50.1) % Plt Count 190 (140-400) K/mcL Neutrophils # 10.4 H (1.6-8.9) K/mcL BMP 12/18/17 05:09 Sodium 128 L Potassium 4.7 Chloride 94 L Carbon Dioxide 23 BUN 37 H Creatinine 1.42 H Glucose 421 H Calcium 9.1 - Impressions Impressions Echocardiogram 12/17/17 09:00 Impressions: Technically limited study due to poor sound wave transmission. Limited suboptimal views. No subcostal views adequate for interpretation able to be obtained. Pt in atrial fibrillation with RVR throughout study with HR 110-120s. Overall LV function appears grossly normal. Cannot exclude wall motion abnormalities due to technical limitations of study. Valves not well visualized. No significant valvular heart disease by Doppler criteria. Findings: Study Quality * Technically sub-optimal due to poor echocardiographic windows. ECG Findings * Atrial fibrillation. Left Ventricle * Overall LV function appears grossly normal. Cannot exclude wall motion abnormalities due to technical limitiations of study. * Unable to evaluate segmental wall motion due to technical quality. * Definity echo contrast was used. * Indeterminate diastolic function. Right Ventricle * Not well visualized Left Atrium * Left atrium is not well visualized. Right Atrium * Right atrium is not well visualized. Interatrial Septum * Interatrial septum not well evaluated. Aortic Valve * Aortic valve not well visualized. * No aortic regurgitation. * No aortic stenosis. Mitral Valve * Mitral valve not well visualized. * Trace mitral regurgitation. Tricuspid Valve * Tricuspid valve not well visualized. * Mild tricuspid regurgitation. * No pulmonary hypertension. Pulmonic Valve * Pulmonic valve not well visualized. Aorta * Not well visualized Pericardium * There is no pericardial effusion present. IVC * The IVC is not well evaluated. Consult Discharge Plan - Plan Referrals: Jessica Rosen SHOT HOLE SHOOTER [Primary Care Provider] - <Ernie Melendez - Last Filed: 12/18/17 16:57> Hospitalist Progress Note - Encounter Date of Encounter: 12/18/17 - Exam Vitals: Temp Pulse Resp BP Pulse Ox 97.7 F 111 24 140/88 97 12/18/17 07:10 12/18/17 07:10 12/18/17 10:27 12/18/17 07:10 12/18/17 10:27 - Assessment and Plan (1) Dyspnea Current Visit: Yes Status: Acute (2) COPD exacerbation Current Visit: Yes Status: Acute (3) Acute renal failure (ARF) Current Visit: Yes Status: Acute (4) DVT prophylaxis Current Visit: Yes Status: Acute (5) Atrial fibrillation with RVR Current Visit: Yes Status: Acute (6) Diabetes mellitus Current Visit: Yes Status: Acute - Time Spent with Patient Total time spent is greater than 50% in coordination of care (as documented) at patient's floor/unit and/or counseling patient: Internal Medicine: Result - Labs CBC & Chem 7: 12/18/17 05:09 12/18/17 05:09 Labs: Short CBC 12/18/17 Range/Units 05:09 WBC 11.4 H (4.3-11.1) K/mcL Hgb 10.0 L (12.9-16.9) g/dL Hct 32.5 L (37.5-50.1) % Plt Count 190 (140-400) K/mcL Neutrophils # 10.4 H (1.6-8.9) K/mcL BMP 12/18/17 05:09 Sodium 128 L Potassium 4.7 Chloride 94 L Carbon Dioxide 23 BUN 37 H Creatinine 1.42 H Glucose 421 H Calcium 9.1 - Impressions Impressions Echocardiogram 12/17/17 09:00 Impressions: Technically limited study due to poor sound wave transmission. Limited suboptimal views. No subcostal views adequate for interpretation able to be obtained. Pt in atrial fibrillation with RVR throughout study with HR 110-120s. Overall LV function appears grossly normal. Cannot exclude wall motion abnormalities due to technical limitations of study. Valves not well visualized. No significant valvular heart disease by Doppler criteria. Findings: Study Quality * Technically sub-optimal due to poor echocardiographic windows. ECG Findings * Atrial fibrillation. Left Ventricle * Overall LV function appears grossly normal. Cannot exclude wall motion abnormalities due to technical limitiations of study. * Unable to evaluate segmental wall motion due to technical quality. * Definity echo contrast was used. * Indeterminate diastolic function. Right Ventricle * Not well visualized Left Atrium * Left atrium is not well visualized. Right Atrium * Right atrium is not well visualized. Interatrial Septum * Interatrial septum not well evaluated. Aortic Valve * Aortic valve not well visualized. * No aortic regurgitation. * No aortic stenosis. Mitral Valve * Mitral valve not well visualized. * Trace mitral regurgitation. Tricuspid Valve * Tricuspid valve not well visualized. * Mild tricuspid regurgitation. * No pulmonary hypertension. Pulmonic Valve * Pulmonic valve not well visualized. Aorta * Not well visualized Pericardium * There is no pericardial effusion present. IVC * The IVC is not well evaluated. - Attending Attestation I have seen and examined this patient independently. I have discussed with the resident physician Dr. Diaz regarding the management plan. Agree with the documentation. <Natalie Lane M - Last Filed: 12/18/17 15:17> (3) Dyspnea Qualifiers: Dyspnea type: unspecified Qualified Code(s): R06.00 - Dyspnea, unspecified (4) Acute renal failure (ARF) Qualifiers: Acute renal failure type: unspecified Qualified Code(s): N17.9 - Acute kidney failure, unspecified (6) Congestive heart failure Qualifiers: Heart failure type: other Qualified Code(s): I50.9 - Heart failure, unspecified (7) Diabetes mellitus Qualifiers: Diabetes mellitus type: type 2 Diabetes mellitus supervisor unloading insulin use: without supervisor unloading use Diabetes mellitus complication status: with kidney complications Diabetes mellitus complication detail: with chronic kidney disease Chronic kidney disease stage: stage 3 (moderate) Qualified Code(s): E11.22 - Type 2 diabetes mellitus with diabetic chronic kidney disease; N18.3 - Chronic kidney disease, stage 3 (moderate) <Ernie Melendez - Last Filed: 12/18/17 16:57> (1) Dyspnea Qualifiers: Dyspnea type: unspecified Qualified Code(s): R06.00 - Dyspnea, unspecified (3) Acute renal failure (ARF) Qualifiers: Acute renal failure type: unspecified Qualified Code(s): N17.9 - Acute kidney failure, unspecified (6) Diabetes mellitus Qualifiers: Diabetes mellitus type: type 2 Diabetes mellitus fci insulin use: without fci use Diabetes mellitus complication status: with kidney complications Diabetes mellitus complication detail: with chronic kidney disease Chronic kidney disease stage: stage 3 (moderate) Qualified Code(s): E11.22 - Type 2 diabetes mellitus with diabetic chronic kidney disease; N18.3 - Chronic kidney disease, stage 3 (moderate)
[2017-12-18] MEDS: Azithromycin 500 MG in D5% in Water 250 ML IVPB SCH (11:38)
--- NOTE | 2017-12-18 16:50 | Event Note ---
<Natalie Lane - Last Filed: 12/18/17 17:25> Date of Encounter: 12/18/17 Time of Encounter: 16:49 Patient seen and examined. He is able to speak in full sentences and has no current complaints. He states that his breathing is much improved since admission. He states the shortness of breath came on gradually and feels similar to his previous episodes of COPD exacerbation. He admits a previous history of DVT and notes that his right leg has been more swollen recently than the left, which is the leg he previously had a DVT. On exam the patient continues to have diffuse wheezing but is saturating at 95- 100% on 4L which is his baseline home oxygen dose. He is not febrile and does not appear septic. His right LE is slightly more swollen than the left but both have trace edema. Heart is irregularly irregular and tachycardic. His abdomen is soft and nontender. Alert and oriented x 3. A/P: Lactic acid returned at 6.3, an increase from earlier today at 5.1. This is likely a Type B Lactic acidosis questionably due to Metformin, albuterol nebs, or increased work of breathing as there is no evidence of sepsis or DKA. His leukocytosis is minimal and well explained by current steroid use for COPD exacerbation. Additionally, his blood sugars are elevated but similarly expected to be impacted by steroid use. Consulted nephroology who recommended starting sodium bicarbonate 650mg. Will also obtain LE Dopplers to rule out DVT given history, continues on xarelto. redraw lactic acid level at 10pm tonight and tomorrow morning for further evaluation. Ordered BiPAP to decrease work of breathing ABG ordered <Ernie Mleendez - Last Filed: 12/18/17 17:46> Date of Encounter: 12/18/17 I have discussed this case with resident physician and agree with the documentation. Pt has CKD and on metformin, he probably has elevated baseline lactate level. And acute respiratory distress and duoneb use may worsen the lactatic acidosis. I have called and discussed with nephrology consult Dr Maldoando on phone, recommendation is to give sodium bicarbonate 650 mg, cont to monitor lactate level. Pt has no signs of sepsis at this point. Clinically his SOB has improved.
[2017-12-18] MEDS ORDERED: *HR* Rivaroxaban 15 MG TABLET PO SCH (17:00)
[2017-12-18 17:17] LABS: ABG Base Excess 2 mEq/L (-2 to 3); ABG HCO3 26 mEq/L (21-27); ABG Oxygen Saturation 97 % (95-98); ABG PCO2 39 mmHg (35-45); ABG PH 7.44 pH Units (7.32-7.45); ABG PO2 92 mmHg (85-104); ABG TCO2 27 mEq/L (20-26)
[2017-12-18] MEDS ORDERED: Insulin DETEMIR 100 UNIT/ML X5UNITS SQ SCH (21:00)
[2017-12-18] MEDS: Temazepam 15 MG CAPSULE PO SCH (21:24)
[2017-12-19] MEDS: Levalbuterol Neb 1.25 MG/3 ML IH SCH ×2 (04:01→10:44)
[2017-12-19 04:45] LABS: Basophils % 0.1 %; Hematocrit 32.9 % (37.5-50.1); Immature Granulocytes % 1.2 % (0-4); Lymphocytes # 0.5 K/mcL (0.6-4.6); Lymphocytes % 4.7 %; Mean Corpuscular HGB Conc 30.4 g/dL (31.6-35.5); Mean Corpuscular Hemoglobin 24.8 pg (28.0-33.3); Mean Corpuscular Volume 81.4 fL (83.0-100.0); Mean Platelet Volume 11.2 fL (9.4-12.4); Monocytes # 0.6 K/mcL (0.0-1.3); Monocytes % 5.3 %; Neutrophils # 9.5 K/mcL (1.6-8.9); Platelet Count 193 K/mcL (140-400); Red Blood Count 4.04 M/mcL (4.19-5.50); Segmented Neutrophils % 88.7 %
[2017-12-19 05:08] LABS: Alanine Aminotransferase 25 Units/L (7-52); Albumin/Globulin Ratio 1.6 (1.1-2.2); Alkaline Phosphatase 47 Units/L (34-104); Aspartate Amino Transferase 15 Units/L (13-39); BUN/Creatinine Ratio 27 (6-26); Bilirubin,Total 0.4 mg/dL (0.3-1.0); Blood Urea Nitrogen 37 mg/dL (8-23); Calcium 9.1 mg/dL (8.6-10.3); Carbon Dioxide 24 mEq/L (23-29); Chloride 95 mEq/L (98-107); Globulin 2.5 g/dL (2.4-3.5); Glucose 372 mg/dL (70-105); Osmolality,Calculated 292 (280-300); Potassium 4.6 mEq/L (3.5-5.1); Sodium 129 mEq/L (136-145); Total Protein 6.5 g/dL (6.4-8.9); eGFR For Non-African Americans 53 (> 60)
[2017-12-19] MEDS: MethylPREDNISolone 40 MG/ML VIAL IVP SCH (07:03)
[2017-12-19] MEDS: Diltiazem CD (24hr) 180 MG CAPSULE PO SCH (08:02)
[2017-12-19] MEDS: Metoprolol XL (24 HR) Succ 50 MG TAB.ER.24H PO SCH (08:02)
[2017-12-19] MEDS: Spironolactone 25 MG TABLET PO SCH (08:02)
[2017-12-19] MEDS: Furosemide 40 MG/4 ML VIAL IVP SCH (08:03)
[2017-12-19] MEDS: *HR* Acetylcysteine 20% 600 MG/3 ML ORAL SYRINGE PO SCH (08:03)
[2017-12-19 08:23] VITALS: BP 130/102
--- NOTE | 2017-12-19 09:34 | Nephrology Consult Note ---
Date of Encounter: 12/19/17 Time of Encounter: 09:32 Assessment and Plan (1) ALEXYS (acute kidney injury) Current Visit: Yes Status: Acute History of frequent AKIs; discussed with patient importance of following up closely and managing his diabetes better as frequent AKIs can lead to CKD. Patient to be discharged today-BMP in 1 week; f/u with nephrology in 4 weeks Lactic acid now WNL 2.2 (2) COPD exacerbation Current Visit: Yes Status: Acute per primary team (3) Diabetes mellitus Current Visit: Yes Status: Acute per primary team Qualifiers: Diabetes mellitus type: type 2 Diabetes mellitus care home insulin use: without buttermaker helper use Diabetes mellitus complication status: with kidney complications Diabetes mellitus complication detail: with chronic kidney disease Chronic kidney disease stage: stage 3 (moderate) Qualified Code(s): E11.22 - Type 2 diabetes mellitus with diabetic chronic kidney disease; N18.3 - Chronic kidney disease, stage 3 (moderate) History of Present Illness - Reason for Consult Consult date: 12/19/17 - Chief Complaint COPD, ALEXYS - History of Present Illness Patient is a 67-year-old male with past medical history significant for cardiomyopathy, atrial fibrillation with AICD/pacemaker, hypertension, hyperlipidemia, diabetes, CVA and COPD who presents to the ER on 12/15/17 after being sent from the cardiologists office due to volume overload. Nephrology was consulted for lactic acid of 6.3 however it has already come down to 2.2. No history of CKD but frequent AKIs. Past Med Surg Social Fam HX - Past Medical History Medical history: arthritis, atrial fibrillation, cardiomyopathy, COPD, coronary artery disease, CVA, diabetes, GERD, hyperlipidemia, hypertension, myocardial infarction Additional medical history: Prostate Cancer Psychiatric history: anxiety, depression - Past Surgical History Surgical History: angioplasty/stent, cancer surgery, cholecystectomy, orthopedic , other, prostatectomy, AICD, pacemaker Additional surgical history: prostectomy. rt knee. gall bladder. shoulders. medtronic pacemaker - Social History Smoking Status: Current every day smoker Packs per day: 0.5 Smokeless Tobacco Status: No Alcohol use: none Drug use: none - Family History Sister Hx Family Cardiac Disorders: Yes (Coronary arterial disease) Medications and Allergies Albuterol Sulfate [Ventolin Hfa] 2 puff IH Q6H PRN 08/29/17 [History] Atorvastatin Calcium [Lipitor] 20 mg PO HS 08/29/17 [History] Buspirone HCl [Buspar] 15 mg PO DAILY 08/29/17 [History] Diltiazem HCl [Diltiazem 24Hr Cd] 360 mg PO DAILY 08/29/17 [History] Furosemide [Lasix] 80 mg PO DAILY 08/29/17 [History] Glimepiride [Amaryl] 2 mg PO DAILY 08/29/17 [History] Ipratropium Neb [Atrovent Neb] 0.5 mg IH Q6HR PRN 08/29/17 [History] Levalbuterol HCl [Xopenex Neb] 1.25 mg IH Q8H PRN 08/29/17 [History] Lisinopril [Lisinopril] 2.5 mg PO DAILY 08/29/17 [History] Loperamide [Imodium] 2 mg PO BID PRN 08/29/17 [History] Meloxicam [Meloxicam] 15 mg PO DAILY 08/29/17 [History] Metformin HCl [Glucophage] 1,000 mg PO BID 08/29/17 [History] Metoprolol Succinate 200 mg PO DAILY 08/29/17 [History] Omeprazole [PriLOSEC] 40 mg PO DAILY 08/29/17 [History] Rivaroxaban [Xarelto] 20 mg PO DAILY 08/29/17 [History] Spironolactone [Aldactone] 25 mg PO DAILY 08/29/17 [History] Temazepam [Restoril] 30 mg PO HS 08/29/17 [History] Acetylcysteine [J-Wcvzsk-c-Cysteine] 600 mg PO BID 12/15/17 [History] 3 Allergy/AdvReac Type Severity Reaction Status Date / Time cephalexin [From Keflex] Allergy Swelling Verified 08/29/17 09:59 of Lip/Tongue/Throat Review of Systems All Systems: reviewed and no additional remarkable complaints except as stated Constitutional: malaise, no fever(s) Cardiovascular: dyspnea, leg edema, no chest pain Respiratory: dyspnea, dyspnea on exertion Neurological: no behavioral changes Exam - Vital Signs Vital signs: Initial Vital Signs Temp Pulse Resp BP Pulse Ox 97.9 F 107 24 121/62 97 12/15/17 14:30 12/15/17 14:30 12/15/17 14:30 12/15/17 14:30 12/15/17 14:30 Vital Signs - Last 8 Hours Temp Pulse Resp BP Pulse Ox 12/19/17 08:22 98.1 F 119 16 130/102 98 12/19/17 04:01 16 100 12/19/17 03:53 97.8 F 98 16 119/73 100 Intake and Output 12/18/17 12/19/17 12/19/17 23:59 07:59 15:59 Intake Total 220 / 220 0 / 0 Output Total 300 / 300 425 / 425 Balance -80 / -80 -425 / -425 Intake: Oral 220 / 220 0 / 0 Output: Urine 300 / 300 425 / 425 Other: Weight 128.3 kg Blood Glucose* 385 383 Patient Weight 12/19/17 23:59 Weight 128.3 kg - General Appearance General appearance: obese EENT: ATNC, mucous membranes moist, hearing intact, vision intact Neck: supple Respiratory: clear Cardiology: edema, normal S1, normal S2 Gastrointestinal: no tenderness, no guarding, obese Integumentary: warm and dry Neurologic: alert and oriented x3 Psychiatric: mood/affect appropriate, cooperative Results - Lab Results 12/19/17 04:31 12/19/17 04:31 Most recent lab results ABG pH 7.44 pH Units (7.32-7.45) 12/18/17 17:12 ABG pCO2 39 mmHg (35-45) 12/18/17 17:12 ABG pO2 92 mmHg (85-104) 12/18/17 17:12 ABG HCO3 26 mEq/L (21-27) 12/18/17 17:12 ABG O2 Saturation 97 % (95-98) 12/18/17 17:12 Calcium 9.1 mg/dL (8.6-10.3) 12/19/17 04:31 Magnesium 2.6 mg/dL (1.6-2.6) 12/18/17 05:09 Consult Discharge Plan - Plan Referrals: Jessica Rosen, IVON [Primary Care Provider] -
--- NOTE | 2017-12-19 10:18 | Discharge Summary ---
<Natalie Lane - Last Filed: 12/19/17 15:15> - NOTES TO OUTPATIENT PROVIDER Notes to Outpatient Provider: prednisone taper for the next seven days Date of Encounter: 12/19/17 Time of Encounter: 10:15 - Discharge Diagnosis (1) COPD exacerbation Priority: Primary Status: Acute (2) Lactic acidosis Priority: Secondary Status: Acute (3) Dyspnea Priority: Secondary Status: Acute Qualifiers: Dyspnea type: unspecified Qualified Code(s): R06.00 - Dyspnea, unspecified (4) Acute renal failure (ARF) Priority: Secondary Status: Acute Qualifiers: Acute renal failure type: unspecified Qualified Code(s): N17.9 - Acute kidney failure, unspecified (5) Atrial fibrillation with RVR Priority: Secondary Status: Acute (6) Congestive heart failure Priority: Secondary Status: Acute Qualifiers: Heart failure type: other Qualified Code(s): I50.9 - Heart failure, unspecified (7) Diabetes mellitus Priority: Secondary Status: Acute Qualifiers: Diabetes mellitus type: type 2 Diabetes mellitus shelter insulin use: without rodent exterminator use Diabetes mellitus complication status: with kidney complications Diabetes mellitus complication detail: with chronic kidney disease Chronic kidney disease stage: stage 3 (moderate) Qualified Code(s): E11.22 - Type 2 diabetes mellitus with diabetic chronic kidney disease; N18.3 - Chronic kidney disease, stage 3 (moderate) (8) Hyperlipidemia Priority: Secondary Status: Acute Qualifiers: Hyperlipidemia type: unspecified Qualified Code(s): E78.5 - Hyperlipidemia , unspecified (9) Hypertension Priority: Secondary Status: Acute Qualifiers: Hypertension type: essential hypertension Qualified Code(s): I10 - Essential (primary) hypertension (10) DVT prophylaxis Priority: Secondary Status: Acute Hospital course: Mr. Penn is a 67 year old male history of COPD on 4 L at home, A. fib with AICD, HLD, but DM, CVA and DVT who was admitted on 12/15/17 with complaints of shortness of breath due to volume overload. Over the course of the patient's stay he was initially diuresed due to elevated BNP though his chest x-ray revealed no evidence of acute exacerbation of CHF. Echo was indeterminate with inability to calculate ejection fracture, similar to that performed in 2017. Patient was symptomatically improved with nebulizer treatments, diuresis, IV steroids, and diet control. He otherwise had transient elevation in lactic acid to 6.3 with US negative for DVT, no evidence of organ dysfunction, or sepsis. He was sent home on prednisone taper to be completed over seven days. He already has scheduled appointments with his security chief museum, primary care physician , and nephrology within the next week. The patient feels much improved and back to his baseline. He is requesting discharge as he would like to get home. The patient agrees with and understands the plan for discharge including plan for follow up. Smoking cessation counseling given and he states he will make an attempt. All questions answered. Discharge discussed with: patient Time spent discussing smoking cessation with patient: 3 to 10 minutes - Time Spent with Patient Total time spent providing and/or coordinating discharge services: Greater than 30 minutes - Discharge Medications Prescriptions: predniSONE [PredniSONE] See Taper PO TAPER 7 Days #30 tablet Home Medications: Albuterol Sulfate [Ventolin Hfa] 2 puff IH Q6H PRN 08/29/17 [History] Atorvastatin Calcium [Lipitor] 20 mg PO HS 08/29/17 [History] Buspirone HCl [Buspar] 15 mg PO DAILY 08/29/17 [History] Diltiazem HCl [Diltiazem 24Hr Cd] 360 mg PO DAILY 08/29/17 [History] Furosemide [Lasix] 80 mg PO DAILY 08/29/17 [History] Glimepiride [Amaryl] 2 mg PO DAILY 08/29/17 [History] Ipratropium Neb [Atrovent Neb] 0.5 mg IH Q6HR PRN 08/29/17 [History] Levalbuterol HCl [Xopenex Neb] 1.25 mg IH Q8H PRN 08/29/17 [History] Lisinopril 2.5 mg PO DAILY 08/29/17 [History] Loperamide [Imodium] 2 mg PO BID PRN 08/29/17 [History] Meloxicam 15 mg PO DAILY 08/29/17 [History] Metformin HCl [Glucophage] 1,000 mg PO BID 08/29/17 [History] Metoprolol Succinate 200 mg PO DAILY 08/29/17 [History] Omeprazole [PriLOSEC] 40 mg PO DAILY 08/29/17 [History] Rivaroxaban [Xarelto] 20 mg PO DAILY 08/29/17 [History] Spironolactone [Aldactone] 25 mg PO DAILY 08/29/17 [History] Temazepam [Restoril] 30 mg PO HS 08/29/17 [History] Acetylcysteine [A-Nmstfa-c-Cysteine] 600 mg PO BID 12/15/17 [History] predniSONE [PredniSONE] See Taper PO TAPER 7 Days #30 tablet 12/19/17 [Rx] Allergies/Adverse Reactions: 3 Allergy/AdvReac Type Severity Reaction Status Date / Time cephalexin [From Keflex] Allergy Swelling Verified 08/29/17 09:59 of Lip/Tongue/Throat Date of admission: 12/15/17 18:58 Primary care physician: Jessica Rosen CNP Consults: 12/18/17 16:54 Consult to Nephrology [CONS] Routine Consulting Provider: Kidney Jennifer/ARTURO/ALPHONSE/EMMANUELLE Reason for Consult: Elevated lactate level Call Completed: Yes Discharging clinician: Natalie Lane Anticipated date of discharge: 12/19/17 - Constitutional Vitals: Temp Pulse Resp BP Pulse Ox 98.1 F 119 16 130/102 98 12/19/17 08:22 12/19/17 08:22 12/19/17 08:22 12/19/17 08:22 12/19/17 08:22 General appearance: Present: A&O X 3, pleasant, no acute distress, obese, answers questions appropriately - Head Head exam: Present: atraumatic, normocephalic - Respiratory Respiratory exam: Present: prolonged expiratory phase, wheezes (throughout). Absent: accessory muscle use, rales, respiratory distress, rhonchi - Cardiovascular Cardiovascular exam: Present: RRR, +S1, +S2. Absent: diastolic murmur, gallop, rubs, systolic murmur - GI/Abdominal GI/Abdominal exam: Present: normal bowel sounds, soft, no peritoneal signs. Absent: distended, tenderness - Extremities Exam Extremities exam: Present: warm, radial pulses palpable and symmetrical. Absent : calf tenderness, cyanotic, pedal edema - Neurological Exam Neurological exam: Present: oriented X3, no focal deficits - Patient Status Disposition: Home, Self-Care Condition: Good Functional capacity at discharge: independent ambulation Overall status at discharge: patient is back to baseline - Discharge Instructions Instructions: Atrial Fibrillation (DC), Acute Kidney Injury (DC), Chronic Obstructive Pulmonary Disease (DC), Dyspnea (GEN), Metabolic Acidosis (GEN) Follow Up With: Avinash Adames CNP [Advanced Practice Nurse] - 01/12/18 8:30 am Jessica Rosen CNP [Primary Care Provider] - 12/27/17 1:00 pm Additional Instructions: - Please take the prednisone taper as directed. You will finish this course in seven days. - Please follow up with your primary care physician and security chief [employer] within the next week. - Please make an effort to quit smoking as we discussed. - Diet and Activity Activity: increase activity as tolerated Diet: diabetic diet <Juan Jose Davalosbu - Last Filed: 12/20/17 07:55> Date of Encounter: 12/19/17 - Discharge Diagnosis (1) Dyspnea Status: Acute Qualifiers: Dyspnea type: unspecified Qualified Code(s): R06.00 - Dyspnea, unspecified (2) COPD exacerbation Status: Acute (3) Acute renal failure (ARF) Status: Acute Qualifiers: Acute renal failure type: unspecified Qualified Code(s): N17.9 - Acute kidney failure, unspecified (4) DVT prophylaxis Status: Acute (5) Atrial fibrillation with RVR Status: Acute (6) Diabetes mellitus Status: Acute Qualifiers: Diabetes mellitus type: type 2 Diabetes mellitus rodent exterminator insulin use: without shelter use Diabetes mellitus complication status: with kidney complications Diabetes mellitus complication detail: with chronic kidney disease Chronic kidney disease stage: stage 3 (moderate) Qualified Code(s): E11.22 - Type 2 diabetes mellitus with diabetic chronic kidney disease; N18.3 - Chronic kidney disease, stage 3 (moderate) Hospital course: Mr. Penn is a 67 year old male - Time Spent with Patient Total time spent providing and/or coordinating discharge services: Date of admission: 12/15/17 18:58 Primary care physician: Jessica Rosen CNP Consults: 12/18/17 16:54 Consult to Nephrology [CONS] Routine Consulting Provider: Kidney Jennifer/ARTURO/ALPHONSE/EMMANUELLE Reason for Consult: Elevated lactate level Call Completed: Yes - Constitutional Vitals: Temp Pulse Resp BP Pulse Ox 98.1 F 119 16 130/102 98 12/19/17 08:22 12/19/17 08:22 12/19/17 10:44 12/19/17 08:22 12/19/17 10:44 - Attending Attestation I examined this patient and my medical decision-making was reviewed with the Resident Physician Dr. Lane. I agree with the documented findings, disposition and treatment plan as described except to the extent set forth below. Mr. Penn is a 67 year old male history of COPD on 4 L at home, A. fib with AICD, HLD, but DM, CVA and DVT who was admitted on 12/15/17 with complaints of shortness of breath due to volume overload and CHF exacerbation. He was started on aggressive IV diuresis. Later he happened to have severe lactic acidosis which might be due to aggressive diuresis and hyperglycemia and Metformin usage at home. Pt was evaluated by Nephro, switched to PO Lasix today. pt also have severe COPD exacerbation with moderate wheezing. pt do not wanted to stay one more day to continue high dose IV steroids. So will d.c him on Prednisone 40mg PO BID tapering dose steroids and PO Lasix. Gen: A, A< O x 3 Chest: Diminished BS, moderate wheezing
[2017-12-19] MEDS: Budesonide/Formoterol 160/4.5 MDI IH SCH (10:44)
[2017-12-19] MEDS ORDERED: Azithromycin 250 MG TABLET PO SCH (11:00)
[2017-12-19] MEDS: Insulin LISPRO 300 UNITS/3 ML VIAL SQ SCH ×2 (11:02→11:03)
== END 2017-12-19 12:23 | disposition home or self-care (01) | DRG 191 ==
LOC: EMEROO 14:27 → 2NENU 14:27
PROVIDERS: ADMIT Internal Medicine; ATTEND Internal Medicine